=== PATIENT | female | born 2000 | race Caucasian/White ===

== ENCOUNTER 2022-06-18 12:32 | Emergency (ER) | payer MEDICAID ==
[~2022-06-18] VITALS: Ht 160 cm; Wt 150.1 kg
[2022-06-18 12:38] VITALS: BP 121/83
[2022-06-18] MEDS ORDERED: ALBU0.0912 IH (16:11)
[2022-06-18] MEDS ORDERED: PROM118S5 PO (16:11)
[2022-06-18 16:20] VITALS: BP 134/75
== END 2022-06-18 16:20 | disposition home or self-care (01) ==
LOC: MED 12:32
DX: R06.02 Shortness of breath (principal); R05.9 Cough, unspecified; Z20.822 Contact with and (suspected) exposure to COVID-19; Z79.899 Other long term (current) drug therapy
CPT/HCPCS: 71045; 93005; 99285